=== PATIENT | female | born 1960 | race Hispanic/Latino ===

== ENCOUNTER 2018-02-11 19:59 | Emergency (ER) | payer MEDICAID, OTHER ==
[2018-02-11] MEDS ORDERED: Acetaminophen 325 MG Tab PO ONE (21:51)
--- NOTE | 2018-02-11 21:56 | EDM.PDOC ---
ED HPI GENERAL MEDICAL PROBLEM - General Chief Complaint: Lower Extremity Injury/Pain Stated Complaint: LEFT SAID PAIN [id number] Time Seen by Provider: 02/11/18 21:45 Source of Information: Reports: Patient History Limitations: Reports: No Limitations - History of Present Illness INITIAL COMMENTS - FREE TEXT/NARRATIVE: This 57 yo female patient reports to the ED with left hip and knee pain that started after she had a ground level fall today. The patient reports she is supposed to be using a cane or walker, but was not using them at the time of the fall. The patient reports that she had a right total knee replacement and is concerned for her left knee due to pain and "clicking". 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 Left Hip Pain Score (Numeric/FACES): 8 - Related Data Allergies Allergy/AdvReac Type Severity Reaction Status Date / Time codeine Allergy Nausea and Verified 02/11/18 20:14 Vomiting Penicillins Allergy Bronchospas Verified 02/11/18 20:14 ms rofecoxib [From Vioxx] Allergy Hives Verified 02/11/18 20:14 venom-honey bee Allergy Anaphylactic Verified 02/11/18 20:14 [bee venom (honey bee)] Shock Home Meds: Home Meds Cyanocobalamin (Vitamin B-12) [Vitamin B-12] 1,000 mcg IM ASDIRECTED 06/02/14 [ History] Cyclobenzaprine [Flexeril] 0.5 tab PO TID PRN 06/02/14 [History] Ferrous Sulfate [Iron] 325 mg PO DAILY 06/02/14 [History] Folic Acid 2 mg PO DAILY 06/02/14 [History] Gabapentin [Neurontin] 600 mg PO TID 06/02/14 [History] Lisinopril 20 mg PO DAILY 06/02/14 [History] Omeprazole [Prilosec] 40 mg PO DAILY 06/02/14 [History] QUEtiapine Fumarate [Seroquel] 100 mg PO ASDIRECTED 06/02/14 [History] SUMAtriptan Succinate [Imitrex] 50 mg PO ASDIRECTED 12/21/14 [History] Sucralfate [Carafate] 1 gm PO QID 06/02/14 [History] metFORMIN [Glucophage] 500 mg PO BID 06/02/14 [History] Lexapro (Generic) ASDIRECTED 02/11/18 [History] Loratadine [Claritin] 5 mg PO DAILY 02/11/18 [History] Oxybutynin DAILY 02/11/18 [History] Oxymetazoline HCl [Nasal [place]] 2 sprays NS DAILY 02/11/18 [History] atorvaSTATin [Lipitor] 10 mg PO DAILY 02/11/18 [History] traZODone HCl [Trazodone HCl] 50 mg PO BEDTIME 02/11/18 [History] Past Medical History HEENT History: Reports: Cataract, Impaired Vision Other HEENT History: wears corrective lenses Cardiovascular History: Reports: Hypertension Respiratory History: Reports: None Gastrointestinal History: Reports: Cholelithiasis, GERD Genitourinary History: Reports: Other (See Below) Other Genitourinary History: stress incontinence 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 Neurological History: Reports: Migraines Psychiatric History: Reports: Anxiety, Depression Endocrine/Metabolic History: Reports: Diabetes, Type II Hematologic History: Reports: B12 Deficiency, Blood Transfusion(s), Folic Acid, Iron Deficiency Immunologic History: Reports: None Oncologic (Cancer) History: Reports: None Dermatologic History: Reports: None - Infectious Disease History Infectious Disease History: Reports: Chicken Pox, Measles, Mumps - Past Surgical History HEENT Surgical History: Reports: Tonsillectomy Cardiovascular Surgical History: Reports: None GI Surgical History: Reports: Appendectomy, Cholecystectomy, Other (See Below) Other GI Surgeries/Procedures: gastric bypass 1995 Female Surgical History: Reports: Hysterectomy Musculoskeletal Surgical History: Reports: Knee Replacement, Other (See Below) Other Musculoskeletal Surgeries/Procedures:: pins to most toes - to straighten. toenail removal Social & Family History - Tobacco Use Smoking Status *Q: Unknown Ever Smoked - Caffeine Use Caffeine Use: Reports: None - Recreational Drug Use Recreational Drug Use: No Review of Systems - Review of Systems Review Of Systems: ROS reveals no pertinent complaints other than HPI. ED EXAM, GENERAL - Physical Exam Exam: Not Obtained Exam Limited By: No Limitations General Appearance: Alert, WD/WN, Moderate Distress Eye Exam: Bilateral Eye: EOMI, Normal Inspection, PERRL Ears: Normal External Exam, Normal Canal, Hearing Grossly Normal, Normal TMs Nose: Normal Inspection, Normal Mucosa, No Blood Throat/Mouth: Normal Inspection, Normal Lips, Normal Teeth, Normal Gums, Normal Oropharynx, Normal Voice, No Airway Compromise Head: Atraumatic, Normocephalic Neck: Normal Inspection, Supple, Non-Tender, Full Range of Motion Respiratory/Chest: No Respiratory Distress, Lungs Clear, Normal Breath Sounds, No Accessory Muscle Use, Chest Non-Tender Cardiovascular: Normal Peripheral Pulses, Regular Rate, Rhythm, No Edema, No Gallop, No JVD, No Murmur, No Rub GI/Abdominal: Normal Bowel Sounds, Soft, Non-Tender, No Organomegaly, No Distention, No Abnormal Bruit, No Mass (Female) Exam: Deferred Rectal (Female) Exam: Deferred Back Exam: Normal Inspection, Full Range of Motion, NT Extremities: Leg Pain (left hip and left knee) Neurological: Alert, Oriented, CN II-XII Intact, Normal Cognition, Normal Gait, Normal Reflexes, No Motor/Sensory Deficits Psychiatric: Normal Affect, Normal Mood Skin Exam: Warm, Dry, Intact, Normal Color, No Rash Lymphatic: No Adenopathy Course - Vital Signs Last Recorded V/S: Last Vital Signs Temp 36.7 C 02/11/18 20:09 Pulse 98 02/11/18 20:09 Resp 18 02/11/18 20:09 BP 114/80 02/11/18 20:09 Pulse Ox 100 02/11/18 20:09 - Orders/Labs/Meds Labs: Laboratory Tests 02/11/18 Range/Units 20:30 Urine Color Yellow (YELLOW) Urine Appearance Clear (CLEAR) Urine pH 6.0 (5.0-9.0) Ur Specific [place] 1.015 (1.005-1.030) Urine Protein Negative (NEGATIVE) Urine Glucose (UA) Negative (NEGATIVE) Urine Ketones Negative (NEGATIVE) Urine Occult Blood Negative (NEGATIVE) Urine Nitrite Negative (NEGATIVE) Urine Bilirubin Negative (NEGATIVE) Urine Urobilinogen 1.0 (0.2-1.0) mg/dL Ur Leukocyte Esterase Trace H (NEGATIVE) Urine RBC 0-5 /HPF Urine WBC 0-5 (0-5/HPF) /HPF Ur Epithelial Cells Rare /HPF Amorphous Sediment Rare (0/HPF) /HPF Urine Bacteria Rare (0-FEW/HPF) /HPF Departure - Departure Time of Disposition: 21:54 Disposition: Home, Self-Care 01 Condition: Fair Clinical Impression: Osteoarthritis of left lower extremity Contusion of left hip Qualifiers: Encounter type: initial encounter Qualified Code(s): S70.02XA - Contusion of left hip, initial encounter Strain of left knee Qualifiers: Encounter type: initial encounter Qualified Code(s): S86.912A - Strain of unspecified muscle(s) and tendon(s) at lower leg level, left leg, initial encounter - Discharge Information *PRESCRIPTION DRUG MONITORING PROGRAM REVIEWED*: Not Applicable *COPY OF PRESCRIPTION DRUG MONITORING REPORT IN PATIENT MAXINE: Not Applicable Instructions: What You Need to Know About Osteoarthritis, Contusion, Easy-to- Read Care Plan Goals: The patient was advised of the examination and x-ray results during the visit. The patient was given an oral dose of Tylenol while in the ED. The patient was advised to use her walker to support her while ambulating. If the patient has any additional symptoms or concerns, the patient should follow-up with her primary care facility or return to the emergency department.
== END 2018-02-11 22:10 | disposition home or self-care (01) ==
LOC: DL.ED 19:59
DX: S86.912A Strain of unspecified muscle(s) and tendon(s) at lower leg level, left leg, initial encounter (principal); S70.02XA Contusion of left hip, initial encounter; M17.11 Unilateral primary osteoarthritis, right knee; I10 Essential (primary) hypertension; F41.9 Anxiety disorder, unspecified; F32.9 Major depressive disorder, single episode, unspecified; E11.9 Type 2 diabetes mellitus without complications; W18.39XA Other fall on same level, initial encounter; Z79.84 Long term (current) use of oral hypoglycemic drugs; Z88.0 Allergy status to penicillin; Z88.5 Allergy status to narcotic agent; Z88.8 Allergy status to other drugs, medicaments and biological substances; Z79.899 Other long term (current) drug therapy
CPT/HCPCS: 73502; 73562; 81001; 99283; A9270

== ENCOUNTER 2018-06-27 18:45 | Emergency (ER) | payer MEDICAID ==
[2018-06-27] MEDS ORDERED: Ondansetron 4 MG/2 ML SDV IV ONE (19:21)
[2018-06-27 19:33] LABS: CHLORIDE,CL 105 mmol/L (101-111); SODIUM,NA 136 mmol/L (135-145)
[2018-06-27] MEDS ORDERED: GI Cocktail Oral Solution 30 ML PO ONE (20:31)
[2018-06-27] MEDS ORDERED: Acetaminophen 325 MG Tab PO ONE (21:54)
--- NOTE | 2018-06-27 22:02 | EDM.PDOC ---
<Marc Verde - Last Filed: 06/28/18 19:34> ED HPI GENERAL MEDICAL PROBLEM - General Chief Complaint: Chest Pain Stated Complaint: NAUSEA, CHEST HURTS Time Seen by Provider: 06/27/18 19:10 - Related Data Allergies Allergy/AdvReac Type Severity Reaction Status Date / Time codeine Allergy Nausea and Verified 05/05/18 19:32 Vomiting Penicillins Allergy Bronchospas Verified 05/05/18 19:32 ms rofecoxib [From Vioxx] Allergy Hives Verified 05/05/18 19:32 venom-honey bee Allergy Anaphylactic Verified 05/05/18 19:32 [bee venom (honey bee)] Shock Home Meds: Home Meds Cyanocobalamin (Vitamin B-12) [Vitamin B-12] 1,000 mcg IM ASDIRECTED 06/02/14 [ History] Cyclobenzaprine [Flexeril] 0.5 tab PO TID PRN 06/02/14 [History] Ferrous Sulfate [Iron] 325 mg PO DAILY 06/02/14 [History] Folic Acid 2 mg PO DAILY 06/02/14 [History] Gabapentin [Neurontin] 600 mg PO TID 06/02/14 [History] Lisinopril 20 mg PO DAILY 06/02/14 [History] Omeprazole [Prilosec] 40 mg PO DAILY 06/02/14 [History] QUEtiapine Fumarate [Seroquel] 100 mg PO ASDIRECTED 06/02/14 [History] SUMAtriptan Succinate [Imitrex] 50 mg PO ASDIRECTED 06/02/14 [History] Sucralfate [Carafate] 1 gm PO QID 06/02/14 [History] metFORMIN [Glucophage] 500 mg PO BID 06/02/14 [History] Lexapro (Generic) ASDIRECTED 02/11/18 [History] Loratadine [Claritin] 5 mg PO DAILY 02/11/18 [History] Oxybutynin DAILY 02/11/18 [History] Oxymetazoline HCl [Nasal [place]] 2 sprays NS DAILY 02/11/18 [History] atorvaSTATin [Lipitor] 10 mg PO DAILY 02/11/18 [History] traZODone HCl [Trazodone HCl] 50 mg PO BEDTIME 02/11/18 [History] Course - Vital Signs Last Recorded V/S: Last Vital Signs Temp 97.6 F 06/27/18 18:50 Pulse 98 06/27/18 18:50 Resp 18 06/27/18 18:50 BP 179/105 H 06/27/18 18:50 Pulse Ox 100 06/27/18 18:50 - Orders/Labs/Meds Labs: Laboratory Tests 06/27/18 06/27/18 06/27/18 Range/Units 19:00 19:00 19:00 WBC 10.5 H (5.0-10.0) 10^3/uL RBC 4.34 (4.2-5.4) 10^6/uL Hgb 12.1 D (12.0-16.0) g/dL Hct 38.0 (37.0-47.0) % MCV 87.6 (80-100) fL MCH 27.9 (27.0-34.0) pg MCHC 31.8 L (33.0-35.0) g/dL Plt Count 354 D (150-450) 10^3/uL Neut % (Auto) 65.8 (42.2-75.2) % Lymph % (Auto) 20.4 L (20.5-50.1) % [place] % (Auto) 6.5 (2-8) % Eos % (Auto) 6.8 H (1.0-3.0) % Baso % (Auto) 0.5 (0.0-1.0) % Sodium 136 (135-145) mmol/L Potassium 5.0 (3.6-5.0) mmol/L Chloride 105 (101-111) mmol/L Carbon Dioxide 22.0 (21.0-31.0) mmol/L Anion Gap 14.0 BUN 20 H (7-18) mg/dL Creatinine 0.9 (0.6-1.3) mg/dL Est Cr Clr Drug Dosing TNP Estimated GFR (MDRD) > 60 BUN/Creatinine Ratio 22.22 Glucose 122 H (74-105) mg/dL Calcium 8.8 (8.4-10.2) mg/dl Total Bilirubin 0.9 (0.2-1.0) mg/dL AST 22 (10-42) IU/L ALT 18 (10-60) IU/L Alkaline Phosphatase 134 H (42-121) IU/L CK-MB (CK-2) 4.90 H (0.4-4.7) ng/mL Troponin I < 0.02 (0.00-0.02) ng/ml B-Natriuretic Peptide 118 H (0-100) pg/ml Total Protein 7.7 (6.7-8.2) g/dl Albumin 4.0 (3.2-5.5) g/dl Globulin 3.7 Albumin/Globulin Ratio 1.08 Amylase 80 (28-100) U/L Lipase 31 (22-51) U/L Urine Color (YELLOW) Urine Appearance (CLEAR) Urine pH (5.0-9.0) Ur Specific [place] (1.005-1.030) Urine Protein (NEGATIVE) Urine Glucose (UA) (NEGATIVE) Urine Ketones (NEGATIVE) Urine Occult Blood (NEGATIVE) Urine Nitrite (NEGATIVE) Urine Bilirubin (NEGATIVE) Urine Urobilinogen (0.2-1.0) mg/dL Ur Leukocyte Esterase (NEGATIVE) Urine RBC /HPF Urine WBC (0-5/HPF) /HPF Ur Epithelial Cells /HPF Urine Bacteria (0-FEW/HPF) /HPF Urine Mucus /LPF Urine Opiates Screen (NEGATIVE) Ur Oxycodone Screen (NEGATIVE) Urine Methadone Screen (NEGATIVE) Ur Barbiturates Screen (NEGATIVE) U Tricyclic Antidepress (NEGATIVE) Ur Phencyclidine Scrn (NEGATIVE) Ur Amphetamine Screen (NEGATIVE) U Methamphetamines Scrn (NEGATIVE) Urine MDMA Screen (NEGATIVE) U Benzodiazepines Scrn (NEGATIVE) Urine Cocaine Screen (NEGATIVE) U Marijuana (THC) Screen (NEGATIVE) Ethyl Alcohol mg/dL 06/27/18 06/27/18 06/27/18 Range/Units 19:00 20:50 20:50 WBC (5.0-10.0) 10^3/uL RBC (4.2-5.4) 10^6/uL Hgb (12.0-16.0) g/dL Hct (37.0-47.0) % MCV (80-100) fL MCH (27.0-34.0) pg MCHC (33.0-35.0) g/dL Plt Count (150-450) 10^3/uL Neut % (Auto) (42.2-75.2) % Lymph % (Auto) (20.5-50.1) % [place] % (Auto) (2-8) % Eos % (Auto) (1.0-3.0) % Baso % (Auto) (0.0-1.0) % Sodium (135-145) mmol/L Potassium (3.6-5.0) mmol/L Chloride (101-111) mmol/L Carbon Dioxide (21.0-31.0) mmol/L Anion Gap BUN (7-18) mg/dL Creatinine (0.6-1.3) mg/dL Est Cr Clr Drug Dosing Estimated GFR (MDRD) BUN/Creatinine Ratio Glucose (74-105) mg/dL Calcium (8.4-10.2) mg/dl Total Bilirubin (0.2-1.0) mg/dL AST (10-42) IU/L ALT (10-60) IU/L Alkaline Phosphatase (42-121) IU/L CK-MB (CK-2) (0.4-4.7) ng/mL Troponin I (0.00-0.02) ng/ml B-Natriuretic Peptide (0-100) pg/ml Total Protein (6.7-8.2) g/dl Albumin (3.2-5.5) g/dl Globulin Albumin/Globulin Ratio Amylase (28-100) U/L Lipase (22-51) U/L Urine Color Yellow (YELLOW) Urine Appearance Slightly cloudy (CLEAR) Urine pH 6.0 (5.0-9.0) Ur Specific [place] 1.020 (1.005-1.030) Urine Protein Negative (NEGATIVE) Urine Glucose (UA) Negative (NEGATIVE) Urine Ketones Negative (NEGATIVE) Urine Occult Blood Trace-intact H (NEGATIVE) Urine Nitrite Negative (NEGATIVE) Urine Bilirubin Negative (NEGATIVE) Urine Urobilinogen 0.2 (0.2-1.0) mg/dL Ur Leukocyte Esterase Trace H (NEGATIVE) Urine RBC 10-20 H /HPF Urine WBC 10-20 H (0-5/HPF) /HPF Ur Epithelial Cells Moderate H /HPF Urine Bacteria Few (0-FEW/HPF) /HPF Urine Mucus Few H /LPF Urine Opiates Screen Negative (NEGATIVE) Ur Oxycodone Screen Negative (NEGATIVE) Urine Methadone Screen Negative (NEGATIVE) Ur Barbiturates Screen Negative (NEGATIVE) U Tricyclic Antidepress Negative (NEGATIVE) Ur Phencyclidine Scrn Negative (NEGATIVE) Ur Amphetamine Screen Negative (NEGATIVE) U Methamphetamines Scrn Negative (NEGATIVE) Urine MDMA Screen Negative (NEGATIVE) U Benzodiazepines Scrn Negative (NEGATIVE) Urine Cocaine Screen Negative (NEGATIVE) U Marijuana (THC) Screen Negative (NEGATIVE) Ethyl Alcohol < 5 mg/dL 06/27/18 Range/Units 21:40 WBC (5.0-10.0) 10^3/uL RBC (4.2-5.4) 10^6/uL Hgb (12.0-16.0) g/dL Hct (37.0-47.0) % MCV (80-100) fL MCH (27.0-34.0) pg MCHC (33.0-35.0) g/dL Plt Count (150-450) 10^3/uL Neut % (Auto) (42.2-75.2) % Lymph % (Auto) (20.5-50.1) % [place] % (Auto) (2-8) % Eos % (Auto) (1.0-3.0) % Baso % (Auto) (0.0-1.0) % Sodium (135-145) mmol/L Potassium (3.6-5.0) mmol/L Chloride (101-111) mmol/L Carbon Dioxide (21.0-31.0) mmol/L Anion Gap BUN (7-18) mg/dL Creatinine (0.6-1.3) mg/dL Est Cr Clr Drug Dosing Estimated GFR (MDRD) BUN/Creatinine Ratio Glucose (74-105) mg/dL Calcium (8.4-10.2) mg/dl Total Bilirubin (0.2-1.0) mg/dL AST (10-42) IU/L ALT (10-60) IU/L Alkaline Phosphatase (42-121) IU/L CK-MB (CK-2) (0.4-4.7) ng/mL Troponin I < 0.02 (0.00-0.02) ng/ml B-Natriuretic Peptide (0-100) pg/ml Total Protein (6.7-8.2) g/dl Albumin (3.2-5.5) g/dl Globulin Albumin/Globulin Ratio Amylase (28-100) U/L Lipase (22-51) U/L Urine Color (YELLOW) Urine Appearance (CLEAR) Urine pH (5.0-9.0) Ur Specific [place] (1.005-1.030) Urine Protein (NEGATIVE) Urine Glucose (UA) (NEGATIVE) Urine Ketones (NEGATIVE) Urine Occult Blood (NEGATIVE) Urine Nitrite (NEGATIVE) Urine Bilirubin (NEGATIVE) Urine Urobilinogen (0.2-1.0) mg/dL Ur Leukocyte Esterase (NEGATIVE) Urine RBC /HPF Urine WBC (0-5/HPF) /HPF Ur Epithelial Cells /HPF Urine Bacteria (0-FEW/HPF) /HPF Urine Mucus /LPF Urine Opiates Screen (NEGATIVE) Ur Oxycodone Screen (NEGATIVE) Urine Methadone Screen (NEGATIVE) Ur Barbiturates Screen (NEGATIVE) U Tricyclic Antidepress (NEGATIVE) Ur Phencyclidine Scrn (NEGATIVE) Ur Amphetamine Screen (NEGATIVE) U Methamphetamines Scrn (NEGATIVE) Urine MDMA Screen (NEGATIVE) U Benzodiazepines Scrn (NEGATIVE) Urine Cocaine Screen (NEGATIVE) U Marijuana (THC) Screen (NEGATIVE) Ethyl Alcohol mg/dL Meds: Medications Discontinued Medications Generic Name Dose Route Start Last Admin Trade Name Dwight PRN Reason Stop Dose Admin Acetaminophen 650 mg 06/27/18 21:54 06/27/18 21:58 Tylenol PO 06/27/18 21:55 650 mg NOW ONE Administration Al Hydroxide/Mg Hydroxide 30 ml 06/27/18 20:31 06/27/18 20:37 Gi Cocktail PO 06/27/18 20:32 30 ml ONETIME ONE Administration Ondansetron HCl 4 mg 06/27/18 19:21 06/27/18 19:27 Zofran IV 06/27/18 19:22 4 mg ONETIME ONE Administration Departure - Departure Disposition: Home, Self-Care 01 Clinical Impression: Nonspecific chest pain Nausea & vomiting Qualifiers: Vomiting type: bilious vomiting Qualified Code(s): R11.14 - Bilious vomiting Instructions: Nonspecific Chest Pain, [id number] Referrals: PCP,None [Primary Care Provider] - Forms: ED Department Discharge Additional Instructions: take home medications as prescribed follow up in clinic this week bland diet increase fluid intake <Mary Mckeon - Last Filed: 06/29/18 05:31> ED HPI GENERAL MEDICAL PROBLEM - General Source of Information: Reports: Patient History Limitations: Reports: No Limitations - History of Present Illness INITIAL COMMENTS - FREE TEXT/NARRATIVE: fever/ chill. No urinary sx. ED with c/o nausea, vomitedmany times yesterday, , Chest and right lower rib pain since. No fever or chills. No urinary sx. No black stools. 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 Musculoskeletal History: Reports: Arthritis, Osteoporosis Neurological History: Reports: Migraines Psychiatric History: Reports: Anxiety, Depression Endocrine/Metabolic History: Reports: Diabetes, Type II Hematologic History: Reports: B12 Deficiency, Blood Transfusion(s), Folic Acid, Iron Deficiency Immunologic History: Reports: None Oncologic (Cancer) History: Reports: None Dermatologic History: Reports: None - Infectious Disease History Infectious Disease History: Reports: Chicken Pox, Measles, Mumps - Past Surgical History HEENT Surgical History: Reports: Tonsillectomy Cardiovascular Surgical History: Reports: None GI Surgical History: Reports: Appendectomy, Cholecystectomy, Other (See Below) Other GI Surgeries/Procedures: gastric bypass 1996 Female Surgical History: Reports: Hysterectomy Musculoskeletal Surgical History: Reports: Knee Replacement, Other (See Below) Other Musculoskeletal Surgeries/Procedures:: pins to most toes - to straighten. toenail removal Social & Family History - Family History Family Medical History: Noncontributory - Caffeine Use Caffeine Use: Reports: Coffee ED ROS GENERAL - Review of Systems Review Of Systems: ROS reveals no pertinent complaints other than HPI. ED EXAM, GENERAL - Physical Exam Exam: See Below Exam Limited By: No Limitations General Appearance: Alert, Mild Distress Eye Exam: Bilateral Eye: EOMI Ears: Normal External Exam Nose: Normal Inspection Throat/Mouth: Normal Inspection Head: Atraumatic, Normocephalic Neck: Normal Inspection Respiratory/Chest: No Respiratory Distress, Lungs Clear, Normal Breath Sounds Cardiovascular: Normal Peripheral Pulses, Regular Rate, Rhythm, No Edema GI/Abdominal: Normal Bowel Sounds, Soft, No Organomegaly, No Distention, Tender (epigastric). No: Distended, Guarding, Rebound Extremities: Normal Inspection, Normal Range of Motion Neurological: Alert, Oriented, Normal Cognition, Normal Gait Psychiatric: Normal Affect Skin Exam: Warm, Dry, Intact, Normal Color Departure - Departure Time of Disposition: 22:13 Condition: Good
== END 2018-06-27 22:23 | disposition home or self-care (01) ==
LOC: DL.ED 18:45
DX: R07.9 Chest pain, unspecified (principal); R11.2 Nausea with vomiting, unspecified; I10 Essential (primary) hypertension; E11.9 Type 2 diabetes mellitus without complications; F32.9 Major depressive disorder, single episode, unspecified; F41.9 Anxiety disorder, unspecified; Z88.5 Allergy status to narcotic agent; Z88.0 Allergy status to penicillin; Z79.899 Other long term (current) drug therapy; Z79.84 Long term (current) use of oral hypoglycemic drugs
CPT/HCPCS: 36415; 70450; 71045; 80053; 80305; 81001; 82150; 82553; 83690; 83880; 84484; 85025; 87086; 93005; 96374; 99285; A9270; G0480; J2405

== ENCOUNTER 2018-10-18 12:28 | Emergency (ER) | payer MEDICAID ==
--- NOTE | 2018-10-18 13:19 | EDM.PDOC ---
ED HPI GENERAL MEDICAL PROBLEM - General Chief Complaint: Lower Extremity Injury/Pain Stated Complaint: HURT HIP LAST NIGHT Time Seen by Provider: 10/18/18 13:19 Source of Information: Reports: Patient, Family, Old Records, RN, RN Notes Reviewed History Limitations: Reports: No Limitations - History of Present Illness INITIAL COMMENTS - FREE TEXT/NARRATIVE: Pt presents to ER from home by POV with c/o left hip and groin pain sustained last night when she fell in the bathroom. Later she slept on the left side and woke with increased pain. Denies any other injury. Pt reports Hx of severe left hip arthritis and plans to see an orthopedic surgeon this month. Pt rates the pain 01/20. Onset: Sudden Onset Date: 10/17/18 Duration: Constant Location: Reports: Lower Extremity, Left Quality: Reports: Ache Severity: Severe Improves with: Reports: Immobilization Worsens with: Reports: Movement Context: Reports: Other (Ground level fall at home.) Associated Symptoms: Reports: No Other Symptoms Left Hip Pain Score (Numeric/FACES): 8 - Related Data Allergies Allergy/AdvReac Type Severity Reaction Status Date / Time codeine Allergy Nausea and Verified 05/05/18 19:32 Vomiting Penicillins Allergy Bronchospas Verified 05/05/18 19:32 ms rofecoxib [From Vioxx] Allergy Hives Verified 05/05/18 19:32 venom-honey bee Allergy Anaphylactic Verified 05/05/18 19:32 [bee venom (honey bee)] Shock Home Meds: Home Meds Cyanocobalamin (Vitamin B-12) [Vitamin B-12] 1,000 mcg IM ASDIRECTED 06/02/14 [ History] Cyclobenzaprine [Flexeril] 0.5 tab PO TID PRN 06/02/14 [History] Ferrous Sulfate [Iron] 325 mg PO DAILY 06/02/14 [History] Folic Acid 2 mg PO DAILY 06/02/14 [History] Gabapentin [Neurontin] 600 mg PO TID 06/02/14 [History] Lisinopril 20 mg PO DAILY 06/02/14 [History] Omeprazole [Prilosec] 40 mg PO DAILY 06/02/14 [History] QUEtiapine Fumarate [Seroquel] 100 mg PO ASDIRECTED 06/02/14 [History] SUMAtriptan Succinate [Imitrex] 50 mg PO ASDIRECTED 06/02/14 [History] Sucralfate [Carafate] 1 gm PO QID 06/02/14 [History] metFORMIN [Glucophage] 500 mg PO BID 06/02/14 [History] Lexapro (Generic) ASDIRECTED 02/11/18 [History] Loratadine [Claritin] 5 mg PO DAILY 02/11/18 [History] Oxybutynin DAILY 02/11/18 [History] Oxymetazoline HCl [Nasal [place]] 2 sprays NS DAILY 02/11/18 [History] atorvaSTATin [Lipitor] 10 mg PO DAILY 02/11/18 [History] traZODone HCl [Trazodone HCl] 50 mg PO BEDTIME 02/11/18 [History] Past Medical History HEENT History: Reports: Cataract, Impaired Vision Other HEENT History: wears corrective lenses Cardiovascular History: Reports: Hypertension Respiratory History: Reports: None Gastrointestinal History: Reports: Cholelithiasis, GERD Genitourinary History: Reports: Other (See Below) Other Genitourinary History: stress incontinence 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 Musculoskeletal History: Reports: Arthritis, Osteoporosis Neurological History: Reports: Migraines Psychiatric History: Reports: Anxiety, Depression Endocrine/Metabolic History: Reports: Diabetes, Type II Hematologic History: Reports: B12 Deficiency, Blood Transfusion(s), Folic Acid, Iron Deficiency Immunologic History: Reports: None Oncologic (Cancer) History: Reports: None Dermatologic History: Reports: None - Infectious Disease History Infectious Disease History: Reports: Chicken Pox, Measles, Mumps - Past Surgical History HEENT Surgical History: Reports: Tonsillectomy Cardiovascular Surgical History: Reports: None GI Surgical History: Reports: Appendectomy, Cholecystectomy, Other (See Below) Other GI Surgeries/Procedures: gastric bypass 1995 Female Surgical History: Reports: Hysterectomy Musculoskeletal Surgical History: Reports: Knee Replacement, Other (See Below) Other Musculoskeletal Surgeries/Procedures:: pins to most toes - to straighten. toenail removal Social & Family History - Family History Family Medical History: Noncontributory - Tobacco Use Smoking Status *Q: Current Every Day Smoker Years of Tobacco use: 5 Packs/Tins Daily: 0.1 Second Hand Smoke Exposure: Yes - Caffeine Use Caffeine Use: Reports: Coffee - Recreational Drug Use Recreational Drug Use: No - Living Situation & Occupation Living situation: Reports: with Family Occupation: Disabled Review of Systems - Review of Systems Review Of Systems: ROS reveals no pertinent complaints other than HPI. ED EXAM, GENERAL - Physical Exam Exam: See Below Exam Limited By: No Limitations General Appearance: Alert, No Apparent Distress, Other (Chronically ill appearing) Nose: Normal Inspection Throat/Mouth: Normal Inspection Head: Atraumatic, Normocephalic Neck: Normal Inspection, Supple, Non-Tender, Full Range of Motion Respiratory/Chest: No Respiratory Distress, Lungs Clear, Normal Breath Sounds, No Accessory Muscle Use, Chest Non-Tender Cardiovascular: Regular Rate, Rhythm GI/Abdominal: Normal Bowel Sounds, Soft, Non-Tender, No Distention, Pelvis Stable (Female) Exam: Deferred Rectal (Female) Exam: Deferred Back Exam: Normal Inspection Extremities: No Pedal Edema, Normal Capillary Refill, Limited Range of Motion ( Left hip), Other (Tender to palpation overlying left pubic rami region, no visible swelling, bruising, redness, or deformity) Neurological: Alert, Oriented, No Motor/Sensory Deficits Psychiatric: Normal Mood Skin Exam: Warm, Dry, Intact, Normal Color, No Rash Course - Vital Signs Last Recorded V/S: Last Vital Signs Temp 36.3 C 10/18/18 12:46 Pulse 79 10/18/18 12:46 Resp 18 10/18/18 12:46 BP 163/74 H 10/18/18 12:46 Pulse Ox 100 10/18/18 12:46 - Orders/Labs/Meds Meds: Medications Discontinued Medications Generic Name Dose Route Start Last Admin Trade Name Dwight PRN Reason Stop Dose Admin Ketorolac Tromethamine 10 mg 10/18/18 13:47 Toradol PO 10/18/18 13:48 ONETIME ONE Lidocaine HCl 15 gm 10/18/18 13:46 Lidocaine 5% TOP 10/18/18 13:47 ONETIME ONE - Radiology Interpretation Free Text/Narrative:: XR Left hip/pelvis: no fracture, severe arthritic changes per Rad. report. Departure - Departure Time of Disposition: 14:05 Disposition: Home, Self-Care 01 Condition: Fair Clinical Impression: Contusion of left hip, initial encounter, Arthritis of left hip - Discharge Information *PRESCRIPTION DRUG MONITORING PROGRAM REVIEWED*: No *COPY OF PRESCRIPTION DRUG MONITORING REPORT IN PATIENT MAXINE: No Instructions: Contusion, Arthritis Forms: ED Department Discharge Additional Instructions: Rx: Lidocaine 5% Ointment Rx: Naprosyn 500mg Follow up in clinic if not improving as expected.
[2018-10-18] MEDS ORDERED: Lidocaine 5% Oint 35.44 GM Tube TOP ONE (13:46)
[2018-10-18] MEDS ORDERED: Ketorolac 10 MG Tab PO ONE (13:47)
--- NOTE | 2018-10-18 13:48 | CR ---
CLINICAL HISTORY: 57-year-old female with left hip and groin pain. INTERPRETATION: Abnormal. AP pelvis/hips and frog lateral views of the left hip confirm asymmetric destructive arthritic changes left hip joint (and underlying femoral head). Less pronounced but asymmetric abnormal joint space narrowing with subchondral cystic lesions and reactive bony eburnation contralateral right hip. No sign of pathologic skeletal lesion, acute pelvic or either hip fracture/dislocation.
== END 2018-10-18 14:25 | disposition home or self-care (01) ==
LOC: DL.ED 12:28
DX: S70.02XA Contusion of left hip, initial encounter (principal); M16.12 Unilateral primary osteoarthritis, left hip; F17.210 Nicotine dependence, cigarettes, uncomplicated; E11.9 Type 2 diabetes mellitus without complications; I10 Essential (primary) hypertension; Z79.84 Long term (current) use of oral hypoglycemic drugs; Z79.899 Other long term (current) drug therapy; Z88.0 Allergy status to penicillin; Z91.030 Bee allergy status; Z88.8 Allergy status to other drugs, medicaments and biological substances; Z88.5 Allergy status to narcotic agent; W19.XXXA Unspecified fall, initial encounter
CPT/HCPCS: 73502; 99284; A9270

== ENCOUNTER 2019-10-09 21:45 | Emergency (ER) | payer MEDICAID ==
[2019-10-09] MEDS ORDERED: Acetaminophen/HYDROcodone 325-5 MG Tab PO ONE (21:46)
--- NOTE | 2019-10-09 22:58 | EDM.PDOC ---
ED HPI GENERAL MEDICAL PROBLEM - General Chief Complaint: Lower Extremity Injury/Pain Stated Complaint: hip and right leg pain Time Seen by Provider: 10/09/19 22:00 Source of Information: Reports: Patient History Limitations: Reports: No Limitations - History of Present Illness INITIAL COMMENTS - FREE TEXT/NARRATIVE: ED with c/o pain to right foot, knee and right hip. Reports tripping on luggage strap yesterday and falling. Hx RA. Remote right hip replacement, prior surgery to right foot. Has been weight bearing, Uses walker. Ibuprofen not helping for pain control. Right Leg Pain Score (Numeric/FACES): 8 - Related Data Allergies Allergy/AdvReac Type Severity Reaction Status Date / Time codeine Allergy Nausea and Verified 10/09/19 22:04 Vomiting Penicillins Allergy Bronchospas Verified 10/09/19 22:04 ms rofecoxib [From Vioxx] Allergy Hives Verified 10/09/19 22:04 venom-honey bee Allergy Anaphylactic Verified 10/09/19 22:04 [bee venom (honey bee)] Shock Home Meds: Home Meds Cyclobenzaprine [Flexeril] 0.5 tab PO TID PRN 06/02/14 [History] Ferrous Sulfate [Iron] 325 mg PO DAILY 06/02/14 [History] Folic Acid 2 mg PO DAILY 06/02/14 [History] Gabapentin [Neurontin] 600 mg PO TID 06/02/14 [History] Lisinopril 20 mg PO DAILY 06/02/14 [History] Omeprazole [Prilosec] 40 mg PO DAILY 06/02/14 [History] SUMAtriptan succinate [Imitrex] 50 mg PO ASDIRECTED 06/02/14 [History] Sucralfate [Carafate] 1 gm PO QID 06/02/14 [History] metFORMIN [Glucophage] 500 mg PO BID 06/02/14 [History] Lexapro (Generic) 20 mg PO DAILY 02/11/18 [History] Loratadine [Claritin] 5 mg PO DAILY 02/11/18 [History] Oxybutynin 20 mg PO DAILY 02/11/18 [History] Oxymetazoline HCl [Nasal [place]] 2 sprays NS DAILY 02/11/18 [History] atorvaSTATin [Lipitor] 10 mg PO DAILY 02/11/18 [History] traZODone HCl [Trazodone HCl] 50 mg PO BEDTIME 02/11/18 [History] ARIPiprazole [Abilify] 2 mg PO DAILY 01/27/19 [History] Hydrocodone/Acetaminophen [Hydrocodon-Acetaminophen 5-325] 1 tab PO ASDIRECTED 01/27/19 [History] Past Medical History HEENT History: Reports: Cataract, Impaired Vision Other HEENT History: wears corrective lenses Cardiovascular History: Reports: Hypertension Respiratory History: Reports: None Gastrointestinal History: Reports: Cholelithiasis, GERD Genitourinary History: Reports: Other (See Below) Other Genitourinary History: stress incontinence 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 Musculoskeletal History: Reports: Arthritis, Osteoporosis Neurological History: Reports: Migraines Psychiatric History: Reports: Anxiety, Depression Endocrine/Metabolic History: Reports: Diabetes, Type II Hematologic History: Reports: B12 Deficiency, Blood Transfusion(s), Folic Acid, Iron Deficiency Immunologic History: Reports: None Oncologic (Cancer) History: Reports: None Dermatologic History: Reports: None - Infectious Disease History Infectious Disease History: Reports: Chicken Pox, Measles, Mumps - Past Surgical History HEENT Surgical History: Reports: Tonsillectomy Cardiovascular Surgical History: Reports: None GI Surgical History: Reports: Appendectomy, Cholecystectomy, Other (See Below) Other GI Surgeries/Procedures: gastric bypass 1996 Female Surgical History: Reports: Hysterectomy Musculoskeletal Surgical History: Reports: Knee Replacement, Other (See Below) Other Musculoskeletal Surgeries/Procedures:: pins to most toes - to straighten. toenail removal Social & Family History - Family History Family Medical History: Noncontributory - Tobacco Use Smoking Status *Q: Current Every Day Smoker Years of Tobacco use: 20 Packs/Tins Daily: 0 - Caffeine Use Caffeine Use: Reports: Coffee, Soda - Recreational Drug Use Recreational Drug Use: No - Living Situation & Occupation Living situation: Reports: with Family Occupation: Disabled Review of Systems - Review of Systems Review Of Systems: Comprehensive ROS is negative, except as noted in HPI. ED EXAM, GENERAL - Physical Exam Exam: See Below Exam Limited By: No Limitations General Appearance: Alert, Mild Distress, Thin Eye Exam: Bilateral Eye: EOMI Ears: Normal External Exam Nose: Normal Inspection Throat/Mouth: Normal Inspection Neck: Normal Inspection Respiratory/Chest: No Respiratory Distress, Lungs Clear Cardiovascular: Regular Rate, Rhythm GI/Abdominal: Normal Bowel Sounds, Soft Back Exam: Full Range of Motion. No: Paraspinal Tenderness, Vertebral Tenderness Extremities: Pedal Edema (right fore foot). No: Redness Neurological: Alert, Oriented, Normal Cognition Psychiatric: Normal Affect, Normal Mood Skin Exam: Warm, Dry, Intact. No: Ecchymosis Course - Vital Signs Last Recorded V/S: Last Vital Signs Temp 97.8 F 10/09/19 21:53 Pulse 86 10/09/19 21:53 Resp 16 10/09/19 21:53 BP 157/97 H 10/09/19 21:53 Pulse Ox 100 10/09/19 21:53 - Orders/Labs/Meds Orders: Active Orders 24 hr Category Date Time Status Foot 2V Rt [CR] Urgent Exams 10/09/19 23:23 Ordered Hip Min 1V w Pelvis Rt [CR] Stat Exams 10/09/19 23:23 Ordered Knee 1V or 2V Rt [CR] Urgent Exams 10/09/19 23:23 Ordered Meds: Medications Discontinued Medications Generic Name Dose Route Start Last Admin Trade Name Dwight PRN Reason Stop Dose Admin Hydrocodone Bitart/Acetaminophen Confirm 10/10/19 00:14 [place] 325-5 Mg Administered 10/10/19 00:15 Dose 2 tab .ROUTE .STK-MED ONE - Radiology Interpretation Free Text/Narrative:: xray right foot hip and knee no acute fracture, see reports Departure - Departure Time of Disposition: 00:06 Disposition: Home, Self-Care 01 Condition: Good Clinical Impression: Right foot pain, Right hip pain, Hx of rheumatoid arthritis Fall at home Qualifiers: Encounter type: initial encounter Qualified Code(s): W19.XXXA - Unspecified fall, initial encounter - Discharge Information *PRESCRIPTION DRUG MONITORING PROGRAM REVIEWED*: No *COPY OF PRESCRIPTION DRUG MONITORING REPORT IN PATIENT MAXINE: No Instructions: Acute Pain, Adult Forms: ED Department Discharge Additional Instructions: Use walker hydrocodone 5/325 one every 6 hours # 2 ice to hip elevate foot follow with primary care if continued pain Sepsis Event Note - Evaluation Sepsis Screening Result: No Definite Risk - Focused Exam Vital Signs: Vital Signs Temp Pulse Resp BP Pulse Ox 10/09/19 21:53 97.8 F 86 16 157/97 H 100 Date Exam was Performed: 10/10/19 Time Exam was Performed: 02:33 - My Orders Last 24 Hours: My Active Orders 10/09/19 23:23 Foot 2V Rt [CR] Urgent Hip Min 1V w Pelvis Rt [CR] Stat Knee 1V or 2V Rt [CR] Urgent - Assessment/Plan Last 24 Hours: My Active Orders 10/09/19 23:23 Foot 2V Rt [CR] Urgent Hip Min 1V w Pelvis Rt [CR] Stat Knee 1V or 2V Rt [CR] Urgent
[2019-10-10] MEDS ORDERED: Acetaminophen/HYDROcodone 325-5 MG Tab ONE (00:14)
== END 2019-10-10 00:24 | disposition home or self-care (01) ==
LOC: DL.ED 21:45
DX: M06.9 Rheumatoid arthritis, unspecified (principal); I10 Essential (primary) hypertension; K21.9 Gastro-esophageal reflux disease without esophagitis; F41.9 Anxiety disorder, unspecified; F32.9 Major depressive disorder, single episode, unspecified; E11.9 Type 2 diabetes mellitus without complications; F17.210 Nicotine dependence, cigarettes, uncomplicated; Z79.84 Long term (current) use of oral hypoglycemic drugs; Z79.899 Other long term (current) drug therapy; Z88.5 Allergy status to narcotic agent; Z88.0 Allergy status to penicillin; Z91.030 Bee allergy status; Z88.8 Allergy status to other drugs, medicaments and biological substances
CPT/HCPCS: 73501; 73560; 73620; 99283; A9270

== ENCOUNTER 2019-12-05 15:08 | Emergency (ER) | payer MEDICAID ==
[2019-12-05] MEDS ORDERED: GI Cocktail Oral Solution 30 ML PO ONE (16:04)
--- NOTE | 2019-12-05 16:07 | EDM.PDOC ---
<Wang Florentino - Last Filed: 12/05/19 21:12> ED HPI GENERAL MEDICAL PROBLEM - General Chief Complaint: Lower Extremity Injury/Pain Stated Complaint: CHEST, RIBS HURTING RIGHT SIDE PER PT Time Seen by Provider: 12/05/19 16:04 - Related Data Allergies Allergy/AdvReac Type Severity Reaction Status Date / Time codeine Allergy Nausea and Verified 12/05/19 15:47 Vomiting Penicillins Allergy Bronchospas Verified 12/05/19 15:47 ms rofecoxib [From Vioxx] Allergy Hives Verified 12/05/19 15:47 venom-honey bee Allergy Anaphylactic Verified 12/05/19 15:47 [bee venom (honey bee)] Shock Home Meds: Home Meds Cyclobenzaprine [Flexeril] 0.5 tab PO TID PRN 06/02/14 [History] Ferrous Sulfate [Iron] 325 mg PO DAILY 06/02/14 [History] Folic Acid 2 mg PO DAILY 06/02/14 [History] Gabapentin [Neurontin] 600 mg PO TID 06/02/14 [History] Lisinopril 20 mg PO DAILY 06/02/14 [History] Omeprazole [Prilosec] 40 mg PO DAILY 06/02/14 [History] SUMAtriptan succinate [Imitrex] 50 mg PO ASDIRECTED 06/02/14 [History] Sucralfate [Carafate] 1 gm PO QID 06/02/14 [History] metFORMIN [Glucophage] 500 mg PO BID 06/02/14 [History] Lexapro (Generic) 20 mg PO DAILY 02/11/18 [History] Loratadine [Claritin] 5 mg PO DAILY 02/11/18 [History] Oxybutynin 20 mg PO DAILY 02/11/18 [History] Oxymetazoline HCl [Nasal [place]] 2 sprays NS DAILY 02/11/18 [History] atorvaSTATin [Lipitor] 10 mg PO DAILY 02/11/18 [History] traZODone HCl [Trazodone HCl] 50 mg PO BEDTIME 02/11/18 [History] ARIPiprazole [Abilify] 2 mg PO DAILY 01/27/19 [History] Hydrocodone/Acetaminophen [Hydrocodon-Acetaminophen 5-325] 1 tab PO ASDIRECTED 01/27/19 [History] ED EXAM, GENERAL - Physical Exam Exam: See Below Course - Re-Assessments/Exams Free Text/Narrative Re-Assessment/Exam: 12/05/19 20:20 The patient reports she continues to have pain to her right hip to right flank. The patient reports increased pain with lying still. 12/05/19 21:13 The patient was advised of the repeat lab results. The patient was given an oral dose of Keflex and an oral dose of [place] prior to discharge. Departure - Departure Time of Disposition: 21:13 Disposition: Home, Self-Care 01 Condition: Fair Clinical Impression: Pyelonephritis - Discharge Information *PRESCRIPTION DRUG MONITORING PROGRAM REVIEWED*: Not Applicable *COPY OF PRESCRIPTION DRUG MONITORING REPORT IN PATIENT MAXINE: Not Applicable Instructions: Pyelonephritis, Adult, [id number] Forms: ED Department Discharge Care Plan Goals: The patient was advised of the examination, lab, EKG and repeat lab results during the visit. The patient was given an oral dose of Keflex and an oral dose of [place] prior to discharge. The patient was discharged with a script for Keflex (500 mg) to take 1 by mouth 3 times per day for 7 days. The patient was encouraged to increase her oral fluid intake. If the patient has any additional symptoms or concerns, the patient should either return to the emergency department or visit her primary care facility. <Marc Verde - Last Filed: 12/06/19 08:20> ED HPI GENERAL MEDICAL PROBLEM - General Source of Information: Reports: Patient History Limitations: Reports: No Limitations - History of Present Illness INITIAL COMMENTS - FREE TEXT/NARRATIVE: He comes emergency department today with complaints of chest pain and shortness of breath. This patient for the past 5 to 6 hours has had an intermittent pinching type pain on the right side of her chest. She actually relates it is more just to the right of her sternum and this is a very similar pain that she has when she has heartburn in the past. She has not tried anything for heartburn. She is short of breath when she takes a deep breath but she does not feel short of breath when she is not taking a deep breath. Her pain does not get worse with deep breath cough or movement. The pain kind of pinches comes and goes and it does not radiate anywhere else. No nausea no vomiting no diaphoresis. No fever no chills. No abdominal pain. No hematuria dysuria or urinary frequency. No constipation black or tarry stools. She has not been traveling. She has not been exposed anyone with COVID. Also complains of chronic right hip and leg pain that she has struggled with for years. Like she is having muscle cramps in her right lower extremity. No recent falls trauma or injury. No change in her gait or paresthesias. 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 children Musculoskeletal History: Reports: Arthritis, Osteoporosis Neurological History: Reports: Migraines Psychiatric History: Reports: Anxiety, Depression Endocrine/Metabolic History: Reports: Diabetes, Type II Hematologic History: Reports: B12 Deficiency, Blood Transfusion(s), Folic Acid, Iron Deficiency Immunologic History: Reports: None Oncologic (Cancer) History: Reports: None Dermatologic History: Reports: None - Infectious Disease History Infectious Disease History: Reports: Chicken Pox, Measles, Mumps - Past Surgical History HEENT Surgical History: Reports: Tonsillectomy Cardiovascular Surgical History: Reports: None GI Surgical History: Reports: Appendectomy, Cholecystectomy, Other (See Below) Other GI Surgeries/Procedures: gastric bypass 1995 Female Surgical History: Reports: Hysterectomy Musculoskeletal Surgical History: Reports: Knee Replacement, Other (See Below) Other Musculoskeletal Surgeries/Procedures:: pins to most toes - to straighten. toenail removal Social & Family History - Family History Family Medical History: Noncontributory - Tobacco Use Smoking Status *Q: Unknown Ever Smoked - Caffeine Use Caffeine Use: Reports: Soda - Recreational Drug Use Recreational Drug Use: No - Living Situation & Occupation Living situation: Reports: with Family Occupation: Disabled Review of Systems - Review of Systems Review Of Systems: Comprehensive ROS is negative, except as noted in HPI. ED EXAM, GENERAL - Physical Exam Exam Limited By: No Limitations General Appearance: Alert, WD/WN, No Apparent Distress, Thin Eye Exam: Bilateral Eye: EOMI Ears: Normal External Exam Nose: Normal Inspection, Normal Mucosa Throat/Mouth: Normal Inspection, Normal Lips, Normal Oropharynx Head: Atraumatic, Normocephalic Neck: Normal Inspection, Supple, Non-Tender Respiratory/Chest: No Respiratory Distress, Lungs Clear, Normal Breath Sounds, No Accessory Muscle Use, Chest Non-Tender Cardiovascular: Normal Peripheral Pulses, Regular Rate, Rhythm, Tachycardia GI/Abdominal: Normal Bowel Sounds, Soft, Non-Tender, No Organomegaly, No Distention, Pelvis Stable (Female) Exam: Deferred Rectal (Female) Exam: Deferred Back Exam: Normal Inspection, Full Range of Motion, CVA Tenderness (R), Other (Negative straight leg raise bilaterally) Extremities: Normal Inspection, Normal Range of Motion, Normal Capillary Refill Neurological: Alert, Oriented, Normal Cognition, Normal Gait, No Motor/Sensory Deficits Psychiatric: Normal Affect, Normal Mood Skin Exam: Warm, Dry, Intact, Normal Color, No Rash EKG INTERPRETATION EKG Date: 12/05/19 Time: 16:18 Rhythm: NSR Rate (Beats/Min): 100 [place]: Normal P-Wave: Present QRS: Normal ST-T: Normal QT: Prolonged Comparison: Change From Previous EKG (prolonged QT at 511) Course - Vital Signs Last Recorded V/S: Last Vital Signs Temp 97.5 F 12/05/19 20:55 Pulse 76 12/05/19 20:55 Resp 18 12/05/19 20:55 BP 117/52 L 12/05/19 20:55 Pulse Ox 94 L 12/05/19 20:55 - Orders/Labs/Meds Orders: Active Orders 24 hr Category Date Time Status EKG Documentation Completion [RC] STAT Care 12/05/19 16:03 Active CULTURE URINE [RM] Stat Lab 12/05/19 17:31 Received Labs: Laboratory Tests 12/05/19 12/05/19 12/05/19 Range/Units 16:12 16:12 17:31 WBC 11.5 H (5.0-10.0) 10^3/uL RBC 4.37 (4.2-5.4) 10^6/uL Hgb 11.1 L (12.0-16.0) g/dL Hct 36.5 L (37.0-47.0) % MCV 83.5 D (80-100) fL MCH 25.4 L (27.0-34.0) pg MCHC 30.4 L (33.0-35.0) g/dL Plt Count 384 (150-450) 10^3/uL Neut % (Auto) 80.4 H (42.2-75.2) % Lymph % (Auto) 11.7 L (20.5-50.1) % [place] % (Auto) 7.0 (2-8) % Eos % (Auto) 0.7 L (1.0-3.0) % Baso % (Auto) 0.2 (0.0-1.0) % Sodium 137 (136-145) mmol/L Potassium 3.0 L (3.5-5.1) mmol/L Chloride 102 (98-107) mmol/L Carbon Dioxide 22 (21-32) mmol/L Anion Gap 16.0 H (7-13) mEq/L BUN 33 H (7-18) mg/dL Creatinine 1.68 H (0.55-1.02) mg/dL Est Cr Clr Drug Dosing 27.81 mL/min Estimated GFR (MDRD) 31 BUN/Creatinine Ratio 19.6 (No establ ref range) Glucose 191 H (74-99) mg/dL Calcium 8.1 L (8.5-10.1) mg/dL Total Bilirubin 0.4 (0.2-1.0) mg/dL AST 21 (15-37) U/L ALT 30 (14-59) U/L Alkaline Phosphatase 123 H (46-116) U/L Troponin I 0.035 (0.000-0.056) ng/mL Total Protein 6.4 (6.4-8.2) g/dL Albumin 2.8 L (3.4-5.0) g/dL Globulin 3.6 Albumin/Globulin Ratio 0.78 Urine Color Dark yellow (YELLOW) Urine Appearance Slightly cloudy (CLEAR) Urine pH 5.5 (5.0-9.0) Ur Specific [place] 1.025 (1.005-1.030) Urine Protein 30 H (NEGATIVE) Urine Glucose (UA) Negative (NEGATIVE) Urine Ketones Negative (NEGATIVE) Urine Occult Blood Trace-intact H (NEGATIVE) Urine Nitrite Negative (NEGATIVE) Urine Bilirubin Negative (NEGATIVE) Urine Urobilinogen 0.2 (0.2-1.0) mg/dL Ur Leukocyte Esterase Trace H (NEGATIVE) U Hyaline Cast (Auto) Many Urine RBC 5-10 H /HPF Urine WBC 10-20 H (0-5/HPF) /HPF Ur Epithelial Cells Moderate H (NOT SEEN) /HPF Amorphous Sediment Few (NOT SEEN) /HPF Urine Bacteria Few (0-FEW/HPF) /HPF Urine Mucus Many H (NOT SEEN) /LPF Urine Opiates Screen (NEGATIVE) Ur Oxycodone Screen (NEGATIVE) Urine Methadone Screen (NEGATIVE) Ur Barbiturates Screen (NEGATIVE) U Tricyclic Antidepress (NEGATIVE) Ur Phencyclidine Scrn (NEGATIVE) Ur Amphetamine Screen (NEGATIVE) U Methamphetamines Scrn (NEGATIVE) Urine MDMA Screen (NEGATIVE) U Benzodiazepines Scrn (NEGATIVE) Urine Cocaine Screen (NEGATIVE) U Marijuana (THC) Screen (NEGATIVE) 12/05/19 12/05/19 Range/Units 17:31 20:07 WBC (5.0-10.0) 10^3/uL RBC (4.2-5.4) 10^6/uL Hgb (12.0-16.0) g/dL Hct (37.0-47.0) % MCV (80-100) fL MCH (27.0-34.0) pg MCHC (33.0-35.0) g/dL Plt Count (150-450) 10^3/uL Neut % (Auto) (42.2-75.2) % Lymph % (Auto) (20.5-50.1) % [place] % (Auto) (2-8) % Eos % (Auto) (1.0-3.0) % Baso % (Auto) (0.0-1.0) % Sodium 139 (136-145) mmol/L Potassium 3.8 (3.5-5.1) mmol/L Chloride 104 (98-107) mmol/L Carbon Dioxide 25 (21-32) mmol/L Anion Gap 13.8 H (7-13) mEq/L BUN 31 H (7-18) mg/dL Creatinine 1.37 H (0.55-1.02) mg/dL Est Cr Clr Drug Dosing 34.11 mL/min Estimated GFR (MDRD) 39 BUN/Creatinine Ratio (No establ ref range) Glucose 96 (74-99) mg/dL Calcium 8.5 (8.5-10.1) mg/dL Total Bilirubin (0.2-1.0) mg/dL AST (15-37) U/L ALT (14-59) U/L Alkaline Phosphatase (46-116) U/L Troponin I 0.032 (0.000-0.056) ng/mL Total Protein (6.4-8.2) g/dL Albumin (3.4-5.0) g/dL Globulin Albumin/Globulin Ratio Urine Color (YELLOW) Urine Appearance (CLEAR) Urine pH (5.0-9.0) Ur Specific [place] (1.005-1.030) Urine Protein (NEGATIVE) Urine Glucose (UA) (NEGATIVE) Urine Ketones (NEGATIVE) Urine Occult Blood (NEGATIVE) Urine Nitrite (NEGATIVE) Urine Bilirubin (NEGATIVE) Urine Urobilinogen (0.2-1.0) mg/dL Ur Leukocyte Esterase (NEGATIVE) U Hyaline Cast (Auto) Urine RBC /HPF Urine WBC (0-5/HPF) /HPF Ur Epithelial Cells (NOT SEEN) /HPF Amorphous Sediment (NOT SEEN) /HPF Urine Bacteria (0-FEW/HPF) /HPF Urine Mucus (NOT SEEN) /LPF Urine Opiates Screen Negative (NEGATIVE) Ur Oxycodone Screen Positive H (NEGATIVE) Urine Methadone Screen Negative (NEGATIVE) Ur Barbiturates Screen Negative (NEGATIVE) U Tricyclic Antidepress Positive H (NEGATIVE) Ur Phencyclidine Scrn Negative (NEGATIVE) Ur Amphetamine Screen Negative (NEGATIVE) U Methamphetamines Scrn Negative (NEGATIVE) Urine MDMA Screen Negative (NEGATIVE) U Benzodiazepines Scrn Negative (NEGATIVE) Urine Cocaine Screen Negative (NEGATIVE) U Marijuana (THC) Screen Positive H (NEGATIVE) Meds: Medications Discontinued Medications Generic Name Dose Route Start Last Admin Trade Name Freq PRN Reason Stop Dose Admin Hydrocodone Bitart/Acetaminophen 1 tab 12/05/19 21:09 12/05/19 21:31 [place] 325-5 Mg PO 12/05/19 21:10 1 tab ONETIME ONE Administration Al Hydroxide/Mg Hydroxide 30 ml 12/05/19 16:04 12/05/19 16:26 Gi Cocktail PO 12/05/19 16:05 30 ml ONETIME ONE Administration Aspirin 324 mg 12/05/19 16:54 12/05/19 16:58 Aspirin PO 12/05/19 16:55 324 mg ONETIME ONE Administration Cephalexin 500 mg 12/05/19 21:09 12/05/19 21:30 Keflex PO 12/05/19 21:10 500 mg ONETIME ONE Administration Lactated Ringer's 1,000 mls @ 1,000 mls/hr 12/05/19 17:30 12/05/19 17:44 Ringers, Lactated IV 12/05/19 18:29 1,000 mls/hr .BOLUS ONE Administration Lactated Ringer's 1,000 mls @ 150 mls/hr 12/05/19 18:00 12/05/19 18:15 Ringers, Lactated IV 150 mls/hr ASDIRECTED FAN Administration Morphine Sulfate 2 mg 12/05/19 18:33 12/05/19 19:07 Morphine IVPUSH 12/05/19 18:34 2 mg ONETIME ONE Administration Potassium Chloride 20 meq 12/05/19 17:28 12/05/19 17:43 Klor-Con 10 PO 12/05/19 17:29 20 meq ONETIME ONE Administration Potassium Chloride 20 meq 12/05/19 17:28 12/05/19 17:43 Potassium Chloride Solution PO 12/05/19 17:29 20 meq NOW STA Administration - Re-Assessments/Exams Free Text/Narrative Re-Assessment/Exam: 12/05/19 17:52 He was given 324 of aspirin chewable orally. EKG shows no ST elevation or depression when reviewed extemporaneously by myself. GI cocktail without any change in her symptoms. Potassium is low at 3.0 we will give her oral solution as well as an oral tablet. Her troponin is within the normal range. Although her creatinine is quite high at 1.68 with a BUN of mid 30s which is new for her from her baseline is 0.9. We will repeat her troponin as well as her creatinine after a fluid bolus. Her urine is infectious as well. Will culture her urine and ceftriaxone. 12/05/19 1900 Report given to Andre Florentino PA-C at this time and care transferred due to change of shift. Sepsis Event Note (ED) - Evaluation Sepsis Screening Result: No Definite Risk - Focused Exam Vital Signs: Vital Signs Temp Pulse Resp BP Pulse Ox 12/05/19 20:55 97.5 F 76 18 117/52 L 94 L - My Orders Last 24 Hours: My Active Orders 12/05/19 16:03 EKG Documentation Completion [RC] STAT 12/05/19 17:31 CULTURE URINE [RM] Stat - Assessment/Plan Last 24 Hours: My Active Orders 12/05/19 16:03 EKG Documentation Completion [RC] STAT 12/05/19 17:31 CULTURE URINE [RM] Stat
--- NOTE | 2019-12-05 16:34 | CR ---
EXAMINATION: Chest 2V SEX: Female AGE: 59 years CLINICAL HISTORY: 59-year-old female with chest pain and shortness of breath. INTERPRETATION: 1. Ear-ring foreign bodies; evidence of extensive posterior lower cervical spinal fusion; orthopedic plate with multiple screws stabilizing proximal left humerus. Chavez rods upper lumbar spine. Generalized osteopenia and mild compression fractures T7 and T8 vertebral bodies. 2. Small hiatus hernia lower middle mediastinum. Surgically absent right eighth rib. 3. Normal cardiac silhouette. 4. No pulmonary vascular congestion, cephalization of flow, alveolar edema or dependent effusion. 5. No lung mass, hilar lymphadenopathy or focal lobar pneumonia. 6. No atelectasis/collapse. No pneumothorax or pneumomediastinum. CONCLUSION: No acute cardiopulmonary abnormality.
[2019-12-05] MEDS ORDERED: Aspirin 81 MG Tab.Chew PO ONE (16:54)
[2019-12-05] MEDS ORDERED: Potassium Chloride 10% 20 MEQ/15 ML Soln 15 ML UD Cup PO STA (17:28)
[2019-12-05] MEDS ORDERED: Potassium Chloride 10 MEQ Tab.ER PO ONE (17:28)
[2019-12-05] MEDS ORDERED: Lactated Ringers 1,000 ML IV ONE (17:30)
[2019-12-05] MEDS ORDERED: Lactated Ringers 1,000 ML IV SCH (18:00)
[2019-12-05] MEDS ORDERED: Morphine 2 MG/ML Syringe IVPUSH ONE (18:33)
[2019-12-05 20:34] LABS: ANION GAP 13.8 mEq/L (7-13)
[2019-12-05] MEDS ORDERED: Acetaminophen/HYDROcodone 325-5 MG Tab PO ONE (21:09)
[2019-12-05] MEDS ORDERED: Cephalexin 500 MG Cap PO ONE (21:09)
== END 2019-12-05 21:39 | disposition home or self-care (01) ==
LOC: DL.ED 15:08
DX: N12 Tubulo-interstitial nephritis, not specified as acute or chronic (principal); I10 Essential (primary) hypertension; K21.9 Gastro-esophageal reflux disease without esophagitis; F41.9 Anxiety disorder, unspecified; F32.9 Major depressive disorder, single episode, unspecified; E11.9 Type 2 diabetes mellitus without complications; M19.90 Unspecified osteoarthritis, unspecified site; Z90.49 Acquired absence of other specified parts of digestive tract; Z88.5 Allergy status to narcotic agent; Z88.0 Allergy status to penicillin; Z91.030 Bee allergy status; Z88.8 Allergy status to other drugs, medicaments and biological substances; Z79.84 Long term (current) use of oral hypoglycemic drugs; Z79.899 Other long term (current) drug therapy
CPT/HCPCS: 36415; 71046; 80048; 80053; 80305; 81001; 84484; 85025; 87086; 87088; 87186; 93005; 96361; 96374; 99285; A9270; J2270; J7120

== ENCOUNTER 2020-03-03 15:27 | Emergency (ER) | payer MEDICAID ==
--- NOTE | 2020-03-03 16:41 | CR ---
EXAMINATION: Foot 2V Lt SEX: Female AGE: 59 years CLINICAL HISTORY: 59-year-old female injured left foot in fall. No comparison exams immediately available. Interpretation: 1. Evidence of extensive mid/forefoot SURGERY including 2 surgical screws in the lateral aspect of the fifth metatarsal, amputation head of the fourth/fifth metatarsals, chronic severe arthritic degenerative changes first/third metatarsophalangeal joints, and longitudinally placed screws first and second digits left forefoot. 2. Chronic arthritic reactive changes mid tarsal and first tarsometatarsal joints. 3. No sign of acute fracture or dislocation left foot. 4. No heal spurs.
--- NOTE | 2020-03-03 16:43 | CR ---
EXAMINATION: Hand 2V Rt SEX: Female AGE: 59 years CLINICAL HISTORY: 59-year-old female injured right hand (fall). Interpretation: 1. Generalized osteopenia and severe arthritic deformity (rheumatoid?) joints of the right wrist/hand. 2. Fusion of the carpal bones right wrist. 3. No sign of acute fracture or dislocation. 4. No foreign bodies.
--- NOTE | 2020-03-03 17:31 | EDM.PDOC ---
ED HPI GENERAL MEDICAL PROBLEM - General Chief Complaint: Upper Extremity Injury/Pain Stated Complaint: FELL AND HURT LEFT FOOT, RIGHT HAND Time Seen by Provider: 03/03/20 16:20 Source of Information: Reports: Patient, RN, RN Notes Reviewed History Limitations: Reports: No Limitations - History of Present Illness INITIAL COMMENTS - FREE TEXT/NARRATIVE: Patient presents to ER with complaint of right wrist pain as well as left foot pain. Patient states her grandson had spilled some liquid on the floor and she slipped and fell hitting the wall with her right hand/wrist and left foot. Patient states she had surgery on her left foot on Tuesday, is to follow-up with her surgeon. Patient states that foot was protected in a boot, but states there is pain there. Patient has significant arthritis, and deformities of the fingers and hands. Patient states she has been using Tylenol and ibuprofen/Aleve for pain and this has not been helping. She denies hitting her head or getting knocked out. Onset: Today, Sudden Left Foot Pain Score (Numeric/FACES): 4 - Related Data Allergies Allergy/AdvReac Type Severity Reaction Status Date / Time codeine Allergy Nausea and Verified 03/03/20 15:53 Vomiting Penicillins Allergy Bronchospas Verified 03/03/20 15:53 ms rofecoxib [From Vioxx] Allergy Hives Verified 03/03/20 15:53 venom-honey bee Allergy Anaphylactic Verified 03/03/20 15:53 [bee venom (honey bee)] Shock Home Meds: Home Meds Cyclobenzaprine [Flexeril] 0.5 tab PO TID PRN 06/02/14 [History] Ferrous Sulfate [Iron] 325 mg PO DAILY 06/02/14 [History] Folic Acid 2 mg PO DAILY 06/02/14 [History] Gabapentin [Neurontin] 600 mg PO TID 06/02/14 [History] Lisinopril 20 mg PO DAILY 06/02/14 [History] Omeprazole [Prilosec] 40 mg PO DAILY 06/02/14 [History] SUMAtriptan succinate [Imitrex] 50 mg PO ASDIRECTED 06/02/14 [History] metFORMIN [Glucophage] 500 mg PO BID 06/02/14 [History] Lexapro (Generic) 20 mg PO DAILY 02/11/18 [History] Loratadine [Claritin] 5 mg PO DAILY 02/11/18 [History] Oxybutynin 20 mg PO DAILY 02/11/18 [History] Oxymetazoline HCl [Nasal [place]] 2 sprays NS DAILY 02/11/18 [History] atorvaSTATin [Lipitor] 10 mg PO DAILY 02/11/18 [History] ARIPiprazole [Abilify] 2 mg PO DAILY 01/27/19 [History] Past Medical History HEENT History: Reports: Cataract, Impaired Vision Other HEENT History: wears corrective lenses Cardiovascular History: Reports: Hypertension Respiratory History: Reports: None Gastrointestinal History: Reports: Cholelithiasis, GERD Genitourinary History: Reports: Other (See Below) Other Genitourinary History: stress incontinence 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 Musculoskeletal History: Reports: Arthritis, Osteoporosis Neurological History: Reports: Migraines Psychiatric History: Reports: Anxiety, Depression Endocrine/Metabolic History: Reports: Diabetes, Type II Hematologic History: Reports: B12 Deficiency, Blood Transfusion(s), Folic Acid, Iron Deficiency Immunologic History: Reports: None Oncologic (Cancer) History: Reports: None Dermatologic History: Reports: None - Infectious Disease History Infectious Disease History: Reports: Chicken Pox, Measles, Mumps - Past Surgical History HEENT Surgical History: Reports: Tonsillectomy Cardiovascular Surgical History: Reports: None GI Surgical History: Reports: Appendectomy, Cholecystectomy, Other (See Below) Other GI Surgeries/Procedures: gastric bypass 1995 Female Surgical History: Reports: Hysterectomy Musculoskeletal Surgical History: Reports: Knee Replacement, Other (See Below) Other Musculoskeletal Surgeries/Procedures:: pins to most toes - to straighten. toenail removal Social & Family History - Family History Family Medical History: Noncontributory - Caffeine Use Caffeine Use: Reports: Soda - Living Situation & Occupation Living situation: Reports: with Family Occupation: Disabled Review of Systems - Review of Systems Review Of Systems: Comprehensive ROS is negative, except as noted in HPI. ED EXAM, GENERAL - Physical Exam Exam: See Below Exam Limited By: No Limitations General Appearance: Alert, WD/WN, No Apparent Distress Eye Exam: Bilateral Eye: EOMI, Normal Inspection Ears: Normal External Exam, Hearing Grossly Normal Nose: Normal Inspection Throat/Mouth: Normal Inspection, Normal Voice, No Airway Compromise Head: Atraumatic, Normocephalic Neck: Normal Inspection, Supple, Non-Tender, Full Range of Motion Respiratory/Chest: No Respiratory Distress, Lungs Clear, Normal Breath Sounds, No Accessory Muscle Use, Chest Non-Tender Cardiovascular: Normal Peripheral Pulses, Regular Rate, Rhythm, No Edema, No Gallop, No JVD, No Murmur, No Rub Peripheral Pulses: 2+: Radial (L), Radial (R) GI/Abdominal: Normal Bowel Sounds, Soft, Non-Tender (Female) Exam: Deferred Rectal (Female) Exam: Deferred Back Exam: Normal Inspection, Decreased Range of Motion Extremities: Joint Swelling (right wrist), Other (Arthritic deformity of hands/fingers bilaterally, walking boot to the left foot, foot is bandaged from surgery, bandage not disrupted. ) Neurological: Alert, Oriented, Normal Cognition Psychiatric: Normal Affect, Normal Mood Skin Exam: Warm, Dry, Intact, Normal Color, No Rash Lymphatic: No Adenopathy Course - Vital Signs Last Recorded V/S: Last Vital Signs Temp 98 F 03/03/20 16:00 Pulse 81 03/03/20 16:00 Resp 18 03/03/20 16:00 BP 125/68 03/03/20 16:00 Pulse Ox 100 03/03/20 16:00 Departure - Departure Time of Disposition: 17:29 Disposition: Home, Self-Care 01 Condition: Fair Clinical Impression: Sprain of wrist, right Qualifiers: Encounter type: initial encounter Qualified Code(s): S63.501A - Unspecified sprain of right wrist, initial encounter Sprain of foot, left Qualifiers: Encounter type: initial encounter Qualified Code(s): S93.602A - Unspecified sprain of left foot, initial encounter - Discharge Information *PRESCRIPTION DRUG MONITORING PROGRAM REVIEWED*: No *COPY OF PRESCRIPTION DRUG MONITORING REPORT IN PATIENT MAXINE: No Instructions: How to Use Cold Therapy, [id number], Elastic Bandage and RICE Therapy, Wrist Sprain, Adult Forms: ED Department Discharge, ED Return to Work/School Form Additional Instructions: And using boot on left foot until seen by your surgeon May use ice to the right wrist as tolerated May use Tylenol and/or ibuprofen as directed for pain May use Baudilio wrap to the right wrist as tolerated Follow-up with your primary care provider Sepsis Event Note (ED) - Evaluation Sepsis Screening Result: No Definite Risk - Focused Exam Vital Signs: Vital Signs Temp Pulse Resp BP Pulse Ox 03/03/20 16:00 98 F 81 18 125/68 100
== END 2020-03-03 17:52 | disposition home or self-care (01) ==
LOC: DL.ED 15:27
DX: S63.501A Unspecified sprain of right wrist, initial encounter (principal); S93.602A Unspecified sprain of left foot, initial encounter; E11.9 Type 2 diabetes mellitus without complications; F41.9 Anxiety disorder, unspecified; F32.9 Major depressive disorder, single episode, unspecified; M19.90 Unspecified osteoarthritis, unspecified site; K21.9 Gastro-esophageal reflux disease without esophagitis; I10 Essential (primary) hypertension; Z79.84 Long term (current) use of oral hypoglycemic drugs; Z79.899 Other long term (current) drug therapy; Z88.5 Allergy status to narcotic agent; Z88.0 Allergy status to penicillin; Z88.6 Allergy status to analgesic agent; W01.198A Fall on same level from slipping, tripping and stumbling with subsequent striking against other object, initial encounter
CPT/HCPCS: 73120-RT; 73620-LT; 99282; 99283-25